=== PATIENT | female | born 1960 | race Caucasian/White ===

== ENCOUNTER 2018-03-18 08:44 | Outpatient (CLI) | payer BC ==
--- NOTE | 2018-03-18 12:37 | MMO ---
BILATERAL SCREENING MAMMOGRAMS: HISTORY: A 57-year-old female. Routine screening mammography. COMPARISON: 01/02/2017 and 07/28/2015 TECHNIQUE: CC and MLO views of both breasts were submitted for interpretation. This patient's mammogram is revi ewed with the assistance of computer aided detection. FINDINGS: The breasts are composed of scattered fibroglandular tissue. Bilaterally, no suspicious dominant mas s, architectural distortion, or suspicious calcification. Benign appearing calcification in the righ t breast. IMPRESSION: BI-RADS Category 2: Benign findings. RECOMMENDATIONS: Annual mammogram. POS: [facility]
== END 2018-03-18 08:45 | disposition home or self-care (01) ==
LOC: SCSMAMMO 08:44
PROVIDERS: ATTEND Family Medicine
DX: Z12.31 Encounter for screening mammogram for malignant neoplasm of breast (principal)
CPT/HCPCS: 77067

== ENCOUNTER 2019-01-14 00:29 | Outpatient (CLI) | payer BC ==
[2019-01-14 14:06] LABS: #Basophils 0.1 thou/uL (0.0-0.2); #Eosinphils 0.2 thou/uL (0.0-0.7); #Lymphocytes 2.4 thou/uL (1.20-3.40); #Monocytes 0.7 thou/uL (0.11-0.59); #Neutrophils 10.2 thou/uL (1.40-6.50); %Basophils 0.6 % (0.0-1.0); %Eosinophils 1.7 % (0.0-10.0); %Lymphocytes 17.9 % (21.0-51.0); %Monocytes 5.2 % (0.0-10.0); %Neutrophils 74.5 % (42.0-75.0); Hemoglobin 14.3 g/dL (12.0-16.0); Mean Corpuscular HGB CONC 32.5 g/dL (32.0-36.0); Mean Corpuscular Hemoglobin 30.9 pg (27.0-31.0); Mean Platelet Volume 7.7 fL (7.4-10.4); Platelet Count 330 thou/uL (130-400); RBC Distribution Width 12.5 % (11.5-14.5); Red Blood Cell (RBC) Count 4.62 mill/uL (4.20-5.40); White Blood Cell (WBC) Count 13.6 thou/uL (4.8-10.8)
[2019-01-14 14:16] LABS: Prothrombin Time 13.6 SEC (12.0-14.7)
[2019-01-14 14:20] LABS: Anion Gap 12 mmol/L (10-20); BUN (Urea Nitrogen) 22 mg/dL (9.8-20.1); Calc. Creatinine Clearance 0 mL/min (70-130); Carbon Dioxide 26 mmol/L (22-29); Chloride 104 mmol/L (98-107); Estimated GFR-MDRD 76; Glucose 89 mg/dL (70-105); Sodium 138 mmol/L (136-145)
== END 2019-01-14 00:30 | disposition home or self-care (01) ==
LOC: LABBT 00:29
PROVIDERS: ATTEND Orthopaedic Surgery
DX: Z01.818 Encounter for other preprocedural examination (principal); Z96.652 Presence of left artificial knee joint
CPT/HCPCS: 80048; 85025; 85610; 87081; 93005; 93010

== ENCOUNTER 2019-01-14 13:15 | Inpatient (IN) | payer BC ==
[2019-01-26] MEDS ORDERED: Midazolam HCl 2 mg/2 ml Vial ONE (06:11)
[2019-01-26] MEDS ORDERED: Fentanyl 100 MCG/2 ML VIAL ONE ×5 (06:11→09:46)
[2019-01-26] MEDS ORDERED: Sodium Chloride 0.9% 100 ML ONE (06:22)
[2019-01-26] MEDS ORDERED: Tranexamic Acid 1,000 MG/10 ML VIAL ONE (06:22)
[2019-01-26] MEDS ORDERED: ceFAZolin Sodium 2 GM/100 ML BAG ONE (06:22)
[2019-01-26] MEDS ORDERED: Zolpidem Tartrate 5 MG TAB PO PRN ×2 (07:09→21:00)
[2019-01-26] MEDS ORDERED: Ketorolac Tromethamine 30 MG/ML VIAL IVP PRN (07:09)
[2019-01-26] MEDS ORDERED: Ondansetron PF 4 MG/2 ML Vial IVP PRN ×2 (07:09→09:20)
[2019-01-26] MEDS ORDERED: Promethazine HCl 25 MG/ML VIAL IM PRN ×3 (07:09→09:20)
[2019-01-26] MEDS ORDERED: traMADol HCl 50 MG TAB PO PRN ×2 (07:09)
[2019-01-26] MEDS ORDERED: HYDROcodone/Acetaminophen 10/325 mg Tablet PO PRN (07:09)
[2019-01-26] MEDS ORDERED: Ropivacaine HCl/PF 250 ML in Premix Bag 1 BAG NERVE BLCK SCH (07:09)
[2019-01-26] MEDS ORDERED: Fentanyl 100 MCG/2 ML VIAL SLOW IVP PRN (07:13)
[2019-01-26] MEDS ORDERED: Promethazine HCl 25 MG/ML VIAL SLOW IVP PRN (09:04)
[2019-01-26] MEDS ORDERED: Ondansetron HCl/PF 4 MG/2 ML Vial IVP PRN (09:04)
[2019-01-26] MEDS ORDERED: PACU-Morphine 4MG/ML VIAL SLOW IVP PRN (09:04)
[2019-01-26] MEDS ORDERED: Acetaminophen 325 MG TAB PO PRN (09:20)
[2019-01-26] MEDS ORDERED: diphenhydrAMINE 25 MG CAP PO PRN (09:20)
[2019-01-26] MEDS ORDERED: CEFAZOLIN 2 GM in Sodium Chloride 0.9% 100 ML IVPB SCH (09:45)
--- NOTE | 2019-01-26 10:41 | RAD ---
LEFT KNEE TWO VIEWS: History: Post op. FINDINGS: Patient is status post total knee replacement. Prosthesis is in good position. No signs of fracture. IMPRESSION: Placement of a total knee prosthesis. POS: [facility]
--- NOTE | 2019-01-26 11:02 | OP ---
DATE OF PROCEDURE: 01/26/2019 PREOPERATIVE DIAGNOSIS: End-stage tricompartmental osteoarthritis, left knee. POSTOPERATIVE DIAGNOSIS: End-stage tricompartmental osteoarthritis, left knee. OPERATIVE PROCEDURE: Cemented cruciate sparing computer-assisted navigated left total knee arthroplasty. SHIPFITTER APPRENTICE: Say Starkey PA-C. ANESTHESIA: General via the LMA. Augmented with adductor canal indwelling block and an anterior sciatic single-shot block. COMPONENTS USED: [employer] triathlon primary cemented cruciate sparing, size #3 femoral component with a triathlon primary size #3 cemented tibial base plate, 9 mm polyethylene fixed bearing insert and an S27 patellar button. TOURNIQUET TIME: Not used. ESTIMATED BLOOD LOSS: 300 mL. FINDINGS: 1. End-stage severe degenerative tricompartmental disease. 2. [id number] arthrosis. 3. Periarticular osteophyte formation. 4. Large serous effusion. 5. Input was 1500 mL of crystalloid, output was 150 mL clear yellow urine. 6. 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 7. Hypertrophic synovium. DRAINS: None. SPECIMENS: None. COMPLICATIONS: None. COUNTS: Correct. INDICATION FOR SURGERY: Ms. Curtis is a 58-year-old white female who has had progressive left knee pain at the time of standing and walking for the last 5 to 7 seven years. She has failed conservative management and elected to proceed with total knee arthroplasty as definitive treatment of her pain. Job ID: [id number]
[2019-01-26] MEDS: Sodium Chloride 0.9% 1,000 ML IV SCH ×2 (11:45→20:30)
[2019-01-26] MEDS ORDERED: Ropivacaine 0.5% HCl/PF (150 MG/30 ML VIAL) ONE (11:50)
[2019-01-26] MEDS ORDERED: Ropivacaine 0.2% HCl/PF (40 MG/20 ML VIAL) ONE (11:50)
[2019-01-26] MEDS ORDERED: Ketorolac Tromethamine 30 MG/ML VIAL ONE (13:21)
[2019-01-26] MEDS ORDERED: Ondansetron PF 4 MG/2 ML Vial ONE (13:21)
[2019-01-26] MEDS ORDERED: Lidocaine 1% PF 5 ML VIAL ONE (13:21)
[2019-01-26] MEDS ORDERED: PROPOFOL 200 MG/20 ML VIAL ONE (13:21)
[2019-01-26] MEDS: HYDROcodone/Acetaminophen 10/325 mg Tablet PO PRN ×3 (13:46→22:10)
[2019-01-26] MEDS ORDERED: HumaLOG 300 UNITS/3 ML VIAL SC PRN ×2 (15:16)
[2019-01-26] MEDS ORDERED: Dextrose 5% in Water 1,000 ML IV PRN (15:16)
[2019-01-26] MEDS ORDERED: Dextrose 50% Abboject 50 ML SYRINGE SLOW IVP PRN (15:16)
--- NOTE | 2019-01-26 15:16 | PDOC.PN ---
- Subjective Encounter Start Date: 01/26/19 Encounter Start Time: 15:14 -: old records requested/rev Patient seen and examined. No new complaints. admitted for left knee replacement consulted for medical management - Objective Resuscitation Status - Order Detail: 01/26/19 15:13 Resuscitation Status Routine Resuscitation Status: FULL: Full Resuscitation MAR Reviewed: Yes Vital Signs & Weight: Vital Signs (12 hours) Temp Pulse Resp BP Pulse Ox 01/26/19 10:10 97.4 F L 92 18 130/83 100 Weight Weight 270 lb Additional Labs: old labs reviewed and noted CBC, BMP, normal Radiology Reviewed by me: Yes (knee xray reviewed) Phys Exam - Physical Examination Constitutional: NAD HEENT: PERRLA, moist MMs, sclera anicteric Neck: no JVD, supple Respiratory: no wheezing, no rales, no rhonchi Cardiovascular: RRR, no significant murmur, no rub Gastrointestinal: soft, non-tender, no distention, positive bowel sounds obesity+ Musculoskeletal: no edema, pulses present left knee with brace, dressing, nerve block in place, berry+ Neurological: non-focal, normal sensation, moves all 4 limbs Lymphatic: no nodes Psychiatric: normal affect, A&O x 3 Skin: no rash, normal turgor Dx/Plan (1) Status post total left knee replacement Code(s): Z96.652 - PRESENCE OF LEFT ARTIFICIAL KNEE JOINT Status: Acute (2) Diabetes type 2, controlled Code(s): E11.9 - TYPE 2 DIABETES MELLITUS WITHOUT COMPLICATIONS Status: Chronic (3) Dyslipidemia Code(s): E78.5 - HYPERLIPIDEMIA, UNSPECIFIED Status: Chronic (4) GERD (gastroesophageal reflux disease) Code(s): K21.9 - GASTRO-ESOPHAGEAL REFLUX DISEASE WITHOUT ESOPHAGITIS Status: Chronic (5) Hypertension Code(s): I10 - ESSENTIAL (PRIMARY) HYPERTENSION Status: Chronic (6) Hypothyroidism Code(s): E03.9 - HYPOTHYROIDISM, UNSPECIFIED Status: Chronic (7) Morbid obesity with BMI of 40.0-44.9, adult Code(s): E66.01 - MORBID (SEVERE) OBESITY DUE TO EXCESS CALORIES; Z68.41 - BODY MASS INDEX (BMI) 40.0-44.9, ADULT Status: Chronic (8) Osteoarthritis Code(s): M19.90 - UNSPECIFIED OSTEOARTHRITIS, UNSPECIFIED SITE Status: Chronic - Plan cont current plan of care, PT/OT * continue aspirin for DVT prophylaxis * home medication reconciled * hyperglycemia protocol treatment * PT/OT as per JU protocol treatment * pain control * nerve bloc as per anesthesia * medication reviewed as below * symptomatic treatment * code status full code. Review of Systems - Review of Systems ENT: negative: Ear Pain, Ear Discharge, Nose Pain, Nose Discharge, Nose Congestion, Mouth Pain, Mouth Swelling, Throat Pain, Throat Swelling, Other Respiratory: negative: Cough, Dry, Shortness of Breath, Hemoptysis, SOB with Excertion, Pleuritic Pain, Sputum, Wheezing Cardiovascular: negative: chest pain, palpitations, orthopnea, paroxysmal nocturnal dyspnea, edema, light headedness, other Gastrointestinal: negative: Nausea, Vomiting, Abdominal Pain, Diarrhea, Constipation, Melena, Hematochezia, Other Genitourinary: negative: Dysuria, Frequency, Incontinence, Hematuria, Retention , Other Musculoskeletal: negative: Neck Pain, Shoulder Pain, Arm Pain, Back Pain, Hand Pain, Leg Pain, Foot Pain, Other Skin: negative: Rash, Lesions, Robert, Bruising, Other - Medications/Allergies Allergies/Adverse Reactions: Allergies Allergy/AdvReac Type Severity Reaction Status Date / Time No Known Allergies Allergy Verified 01/14/19 12:40 Medications: Current Medications Acetaminophen (Tylenol) 650 mg PO Q4H PRN PRN Reason: Headache/Fever or Pain Hydrocodone Bitart/Acetaminophen ([place] 10/325) 1 tab PO Q4H PRN PRN Reason: Pain (1-3) Hydrocodone Bitart/Acetaminophen ([place] 10/325) 2 tab PO Q4H PRN PRN Reason: PAIN (4-6) Last Admin: 01/26/19 13:46 Dose: 2 tab Aspirin (Ecotrin) 81 mg PO BID [facility] Atorvastatin Calcium (Lipitor) 20 mg PO HS [facility] Cholecalciferol (Vitamin D3) 2,000 units PO BID [facility] Diphenhydramine HCl (Benadryl) 25 mg PO Q6H PRN PRN Reason: Itching Fentanyl (Sublimaze) 50 mcg SLOW IVP Q1H PRN PRN Reason: Breakthrough Pain Last Admin: 01/26/19 11:44 Dose: 50 mcg Ferrous Gluconate (Fergon) 324 mg PO BID [facility] Vancomycin HCl 2 gm/ Sodium (Chloride) 500 mls @ 250 mls/hr IVPB ONE [facility] Stop: 01/27/19 08:14 Ropivacaine 250 ml/ Device 250 mls @ 6 mls/hr NERVE BLCK INF [facility] Sodium Chloride (Normal Saline 0.9%) 1,000 mls @ 100 mls/hr IV .Q10H [facility] Last Admin: 01/26/19 11:45 Dose: 1,000 mls Cefazolin Sodium 2 gm/ Sodium (Chloride) 100 mls @ 200 mls/hr IVPB 1500,2300 [facility] Stop: 01/26/19 23:29 Iron/Minerals/Multivitamins (Theragran M) 1 tab PO DAILY [facility] Ketorolac Tromethamine (Toradol) 15 mg IVP Q6H PRN PRN Reason: Moderate Pain (4-6) Stop: 01/29/19 07:10 Ketorolac Tromethamine (Toradol) 30 mg IVP Q8HR [facility] Stop: 01/28/19 14:01 Levothyroxine Sodium (Synthroid) 88 mcg PO 0600 [facility] Lisinopril (Zestril) 10 mg PO DAILY [facility] Loratadine (Claritin) 10 mg PO HS [facility] Ondansetron HCl (Zofran) 4 mg IVP Q6H PRN PRN Reason: Nausea/Vomiting Pantoprazole Sodium (Protonix) 40 mg PO QPM [facility] Pioglitazone HCl (Actos) 30 mg PO DAILY [facility] Promethazine HCl (Phenergan) 12.5 mg IM Q4H PRN PRN Reason: Nausea/Vomiting Senna/Docusate Sodium (Senokot S) 2 tab PO BID [facility] Sodium Chloride (Flush - Normal Saline) 10 ml IVF PRN PRN PRN Reason: Saline Flush Spironolactone (Aldactone) 25 mg PO DAILY [facility] Tramadol HCl (Ultram) 50 mg PO Q6H PRN PRN Reason: Mild Pain (1-3) Tramadol HCl (Ultram) 100 mg PO Q6H PRN PRN Reason: Moderate Pain 4-6 Zolpidem Tartrate (Ambien) 5 mg PO HS PRN PRN Reason: Insomnia
[2019-01-26] MEDS: Ketorolac Tromethamine 30 MG/ML VIAL IVP SCH ×2 (15:40→21:00)
[2019-01-26] MEDS: CEFAZOLIN 2 GM in Sodium Chloride 0.9% 100 ML IVPB SCH ×2 (16:09→22:12)
[2019-01-26] MEDS: Atorvastatin Calcium 20 MG TAB PO SCH (20:52)
[2019-01-26] MEDS: Ferrous Gluconate 324 MG TAB PO SCH (20:52)
[2019-01-26] MEDS: Senokot S 8.6-50 MG TAB PO SCH (20:52)
[2019-01-26] MEDS: Loratadine 10 MG TAB PO SCH (20:52)
[2019-01-26] MEDS: Aspirin 81 mg Enteric Coated Tablet PO SCH (20:53)
[2019-01-27] MEDS: HYDROcodone/Acetaminophen 10/325 mg Tablet PO PRN ×5 (03:10→21:56)
[2019-01-27] MEDS: Sodium Chloride 0.9% 1,000 ML IV SCH ×2 (04:49→15:11)
[2019-01-27 05:28] LABS: Hemoglobin 10.8 g/dL (12.0-16.0); Mean Corpuscular HGB CONC 31.8 g/dL (32.0-36.0); Mean Corpuscular Hemoglobin 29.8 pg (27.0-31.0); Mean Corpuscular Volume 93.8 fL (78.0-98.0); Mean Platelet Volume 7.3 fL (7.4-10.4); Platelet Count 237 thou/uL (130-400); RBC Distribution Width 12.6 % (11.5-14.5); Red Blood Cell (RBC) Count 3.61 mill/uL (4.20-5.40); White Blood Cell (WBC) Count 11.8 thou/uL (4.8-10.8)
[2019-01-27] MEDS: Ketorolac Tromethamine 30 MG/ML VIAL IVP SCH ×3 (05:30→22:00)
[2019-01-27] MEDS: Levothyroxine Sodium 100 MCG TAB PO SCH (05:31)
[2019-01-27] MEDS: Pioglitazone HCl 15 MG TAB PO SCH (08:37)
[2019-01-27] MEDS: Aspirin 81 mg Enteric Coated Tablet PO SCH ×2 (08:37→21:49)
[2019-01-27] MEDS: Lisinopril 10 MG TAB PO SCH (08:37)
--- NOTE | 2019-01-27 08:37 | PRG ---
DATE OF SERVICE: 01/27/2019 SUBJECTIVE: Ms. Curtis is a 58-year-old female who is postop day #1 from a left total knee arthroplasty. She is doing relatively well. She ambulated 40 feet yesterday evening. I believe she is scheduled for [facility] on postop day #3. OBJECTIVE: VITAL SIGNS: Temperature 97.7, pulse 85, respiratory rate 16, O2 saturation is 100% on room air with blood pressure of 106/72. GENERAL: She is alert and oriented to person, place, time, and situation and appropriate with examiner. EXTREMITIES: She is neurovascular intact in both lower extremities. LABORATORY DATA: Hemoglobin and hematocrit 10.8 and 33.9. IMPRESSION: 1. A 58-year-old female, postoperative day #1, left total knee arthroplasty. 2. Mild postoperative asymptomatic hemorrhagic anemia. PLAN: Continue current care. Plan for transfer on postop day #3 to [facility]. Job ID: [id number]
[2019-01-27] MEDS: Multivitamin W/ Minerals 1 TAB PO SCH (08:38)
[2019-01-27] MEDS: Ferrous Gluconate 324 MG TAB PO SCH ×2 (08:38→21:49)
[2019-01-27] MEDS: Senokot S 8.6-50 MG TAB PO SCH ×2 (08:38→21:49)
[2019-01-27] MEDS: Spironolactone 25 MG TAB PO SCH (08:38)
[2019-01-27 10:06] VITALS: BMI 41.0
--- NOTE | 2019-01-27 11:11 | PDOC.PN ---
- Subjective Encounter Start Date: 01/27/19 Encounter Start Time: 08:30 Patient seen and examined. No new complaints. No overnight events - Objective Resuscitation Status - Order Detail: 01/26/19 15:13 Resuscitation Status Routine Resuscitation Status: FULL: Full Resuscitation MAR Reviewed: Yes Vital Signs & Weight: Vital Signs (12 hours) Temp Pulse Resp BP BP Pulse Ox 01/27/19 08:37 129/80 01/27/19 07:07 98 F 85 20 129/80 97 01/27/19 04:00 97.7 F 85 16 106/72 100 01/27/19 00:00 98.5 F 84 16 121/77 95 Weight Admit Weight 270 lb Weight 270 lb I&O: 01/26/19 01/27/19 01/28/19 06:59 06:59 06:59 Intake Total 1301 Output Total 1550 Balance -249 Result Diagrams: 01/27/19 04:53 Additional Labs: Accuchecks 01/27/19 01/26/19 01/26/19 05:32 20:51 15:49 POC Glucose 138 H 136 H 122 H Phys Exam - Physical Examination Constitutional: NAD HEENT: PERRLA, moist MMs, sclera anicteric Neck: no JVD, supple Respiratory: no wheezing, no rales, no rhonchi Cardiovascular: RRR, no significant murmur, no rub Gastrointestinal: soft, non-tender, no distention, positive bowel sounds Musculoskeletal: no edema, pulses present left knee with dressing, nerve block in place Neurological: non-focal, normal sensation Lymphatic: no nodes Psychiatric: normal affect, A&O x 3 Skin: no rash, normal turgor Dx/Plan (1) Status post total left knee replacement Code(s): Z96.652 - PRESENCE OF LEFT ARTIFICIAL KNEE JOINT Status: Acute (2) Diabetes type 2, controlled Code(s): E11.9 - TYPE 2 DIABETES MELLITUS WITHOUT COMPLICATIONS Status: Chronic (3) Dyslipidemia Code(s): E78.5 - HYPERLIPIDEMIA, UNSPECIFIED Status: Chronic (4) GERD (gastroesophageal reflux disease) Code(s): K21.9 - GASTRO-ESOPHAGEAL REFLUX DISEASE WITHOUT ESOPHAGITIS Status: Chronic (5) Hypertension Code(s): I10 - ESSENTIAL (PRIMARY) HYPERTENSION Status: Chronic (6) Hypothyroidism Code(s): E03.9 - HYPOTHYROIDISM, UNSPECIFIED Status: Chronic (7) Morbid obesity with BMI of 40.0-44.9, adult Code(s): E66.01 - MORBID (SEVERE) OBESITY DUE TO EXCESS CALORIES; Z68.41 - BODY MASS INDEX (BMI) 40.0-44.9, ADULT Status: Chronic (8) Osteoarthritis Code(s): M19.90 - UNSPECIFIED OSTEOARTHRITIS, UNSPECIFIED SITE Status: Chronic - Plan cont current plan of care, PT/OT * medication reviewed as below * symptomatic treatment * pain controlled * nerve block as per anesthesia * berry out today * overall doing well with PT * expecting discharge tomorrow * continue aspirin and her home meds. Review of Systems - Review of Systems ENT: negative: Ear Pain, Ear Discharge, Nose Pain, Nose Discharge, Nose Congestion, Mouth Pain, Mouth Swelling, Throat Pain, Throat Swelling, Other Respiratory: negative: Cough, Dry, Shortness of Breath, Hemoptysis, SOB with Excertion, Pleuritic Pain, Sputum, Wheezing Cardiovascular: negative: chest pain, palpitations, orthopnea, paroxysmal nocturnal dyspnea, edema, light headedness, other Gastrointestinal: negative: Nausea, Vomiting, Abdominal Pain, Diarrhea, Constipation, Melena, Hematochezia, Other Genitourinary: negative: Dysuria, Frequency, Incontinence, Hematuria, Retention , Other Musculoskeletal: negative: Neck Pain, Shoulder Pain, Arm Pain, Back Pain, Hand Pain, Leg Pain, Foot Pain, Other Skin: negative: Rash, Lesions, Robert, Bruising, Other - Medications/Allergies Allergies/Adverse Reactions: Allergies Allergy/AdvReac Type Severity Reaction Status Date / Time No Known Allergies Allergy Verified 01/14/19 12:40 Medications: Current Medications Acetaminophen (Tylenol) 650 mg PO Q4H PRN PRN Reason: Headache/Fever or Pain Hydrocodone Bitart/Acetaminophen ([place] 10/325) 1 tab PO Q4H PRN PRN Reason: Pain (1-3) Hydrocodone Bitart/Acetaminophen ([place] 10/325) 2 tab PO Q4H PRN PRN Reason: PAIN (4-6) Last Admin: 01/27/19 08:34 Dose: 2 tab Aspirin (Ecotrin) 81 mg PO BID [facility] Last Admin: 01/27/19 08:37 Dose: 81 mg Atorvastatin Calcium (Lipitor) 20 mg PO HS [facility] Last Admin: 01/26/19 20:52 Dose: 20 mg Cholecalciferol (Vitamin D3) 2,000 units PO BID [facility] Last Admin: 01/27/19 08:38 Dose: 2,000 units Dextrose/Water (Dextrose 50%) 25 gm SLOW IVP PRN PRN PRN Reason: Hypoglycemia Diphenhydramine HCl (Benadryl) 25 mg PO Q6H PRN PRN Reason: Itching Fentanyl (Sublimaze) 50 mcg SLOW IVP Q1H PRN PRN Reason: Breakthrough Pain Last Admin: 01/26/19 11:44 Dose: 50 mcg Ferrous Gluconate (Fergon) 324 mg PO BID [facility] Last Admin: 01/27/19 08:38 Dose: 324 mg Glucagon (Glucagon) 1 mg IM PRN PRN PRN Reason: Hypoglycemia Ropivacaine 250 ml/ Device 250 mls @ 6 mls/hr NERVE BLCK INF [facility] Last Admin: 01/27/19 10:32 Dose: 250 mls Sodium Chloride (Normal Saline 0.9%) 1,000 mls @ 100 mls/hr IV .Q10H [facility] Last Admin: 01/27/19 04:49 Dose: Not Given Dextrose/Water (D5w) 1,000 mls @ 0 mls/hr IV .Q0M PRN PRN Reason: Hypoglycemia Insulin Human Lispro (Humalog) 0 units SC .MODERATE SLIDING SC PRN PRN Reason: Moderate Correctional Scale Insulin Human Lispro (Humalog) 0 units SC .BEDTIME SLIDING SC PRN PRN Reason: Bedtime Correctional Scale Iron/Minerals/Multivitamins (Theragran M) 1 tab PO DAILY [facility] Last Admin: 01/27/19 08:38 Dose: 1 tab Ketorolac Tromethamine (Toradol) 15 mg IVP Q6H PRN PRN Reason: Moderate Pain (4-6) Stop: 01/29/19 07:10 Ketorolac Tromethamine (Toradol) 30 mg IVP Q8HR [facility] Stop: 01/28/19 14:01 Last Admin: 01/27/19 05:30 Dose: 30 mg Levothyroxine Sodium (Synthroid) 88 mcg PO 0600 [facility] Last Admin: 01/27/19 05:31 Dose: 88 mcg Lisinopril (Zestril) 10 mg PO DAILY [facility] Last Admin: 01/27/19 08:37 Dose: 10 mg Loratadine (Claritin) 10 mg PO HS [facility] Last Admin: 01/26/19 20:52 Dose: 10 mg Ondansetron HCl (Zofran) 4 mg IVP Q6H PRN PRN Reason: Nausea/Vomiting Last Admin: 01/27/19 08:04 Dose: 4 mg Pantoprazole Sodium (Protonix) 40 mg PO QPM [facility] Last Admin: 01/26/19 20:52 Dose: 40 mg Pioglitazone HCl (Actos) 30 mg PO DAILY [facility] Last Admin: 01/27/19 08:37 Dose: 30 mg Promethazine HCl (Phenergan) 12.5 mg IM Q4H PRN PRN Reason: Nausea/Vomiting Senna/Docusate Sodium (Senokot S) 2 tab PO BID [facility] Last Admin: 01/27/19 08:38 Dose: 2 tab Sodium Chloride (Flush - Normal Saline) 10 ml IVF PRN PRN PRN Reason: Saline Flush Spironolactone (Aldactone) 25 mg PO DAILY [facility] Last Admin: 01/27/19 08:38 Dose: 25 mg Tramadol HCl (Ultram) 50 mg PO Q6H PRN PRN Reason: Mild Pain (1-3) Tramadol HCl (Ultram) 100 mg PO Q6H PRN PRN Reason: Moderate Pain 4-6 Zolpidem Tartrate (Ambien) 5 mg PO HS PRN PRN Reason: Insomnia
[2019-01-27] MEDS: Atorvastatin Calcium 20 MG TAB PO SCH (21:49)
[2019-01-27] MEDS: Loratadine 10 MG TAB PO SCH (21:49)
[2019-01-28] MEDS: Sodium Chloride 0.9% 1,000 ML IV SCH ×2 (00:31→12:36)
[2019-01-28] MEDS: HYDROcodone/Acetaminophen 10/325 mg Tablet PO PRN ×3 (03:45→13:03)
[2019-01-28 04:40] LABS: Hemoglobin 9.9 g/dL (12.0-16.0); Mean Corpuscular HGB CONC 32.6 g/dL (32.0-36.0); Mean Corpuscular Hemoglobin 30.8 pg (27.0-31.0); Mean Corpuscular Volume 94.5 fL (78.0-98.0); Mean Platelet Volume 7.4 fL (7.4-10.4); Platelet Count 231 thou/uL (130-400); RBC Distribution Width 12.5 % (11.5-14.5); Red Blood Cell (RBC) Count 3.21 mill/uL (4.20-5.40); White Blood Cell (WBC) Count 12.6 thou/uL (4.8-10.8)
[2019-01-28] MEDS: Levothyroxine Sodium 100 MCG TAB PO SCH (05:59)
[2019-01-28] MEDS: Ketorolac Tromethamine 30 MG/ML VIAL IVP SCH (06:00)
[2019-01-28] MEDS: Senokot S 8.6-50 MG TAB PO SCH (08:04)
[2019-01-28] MEDS: Multivitamin W/ Minerals 1 TAB PO SCH (08:04)
[2019-01-28] MEDS: Pioglitazone HCl 15 MG TAB PO SCH (08:04)
[2019-01-28] MEDS: Ferrous Gluconate 324 MG TAB PO SCH (08:05)
[2019-01-28] MEDS: Aspirin 81 mg Enteric Coated Tablet PO SCH (08:05)
[2019-01-28] MEDS: Lisinopril 10 MG TAB PO SCH (08:05)
[2019-01-28] MEDS: Spironolactone 25 MG TAB PO SCH (08:05)
--- NOTE | 2019-01-28 10:08 | PDOC.PN ---
- Subjective Encounter Start Date: 01/28/19 Encounter Start Time: 08:40 Patient seen and examined. No new complaints. No overnight events - Objective Resuscitation Status - Order Detail: 01/26/19 15:13 Resuscitation Status Routine Resuscitation Status: FULL: Full Resuscitation MAR Reviewed: Yes Vital Signs & Weight: Vital Signs (12 hours) Temp Pulse Resp BP BP Pulse Ox 01/28/19 08:05 106/89 01/28/19 07:10 98.6 F 95 16 106/69 95 01/28/19 04:00 98.8 F 99 18 128/81 98 01/28/19 00:00 98.7 F 97 18 130/75 99 Weight Admit Weight 270 lb Weight 270 lb I&O: 01/27/19 01/28/19 01/29/19 06:59 06:59 06:59 Intake Total 1301 2645 Output Total 1550 200 Balance -249 2445 Result Diagrams: 01/28/19 04:16 Additional Labs: Accuchecks 01/28/19 01/27/19 01/27/19 06:08 21:55 16:30 POC Glucose 141 H 141 H 131 H Phys Exam - Physical Examination Constitutional: NAD HEENT: PERRLA, moist MMs, sclera anicteric Neck: no JVD, supple Respiratory: no wheezing, no rales, no rhonchi Cardiovascular: RRR, no significant murmur, no rub Gastrointestinal: soft, non-tender, no distention, positive bowel sounds Musculoskeletal: no edema, pulses present surgical site clean Neurological: non-focal, normal sensation Psychiatric: normal affect, A&O x 3 Skin: no rash, normal turgor Dx/Plan (1) Status post total left knee replacement Code(s): Z96.652 - PRESENCE OF LEFT ARTIFICIAL KNEE JOINT Status: Acute (2) Diabetes type 2, controlled Code(s): E11.9 - TYPE 2 DIABETES MELLITUS WITHOUT COMPLICATIONS Status: Chronic (3) Dyslipidemia Code(s): E78.5 - HYPERLIPIDEMIA, UNSPECIFIED Status: Chronic (4) GERD (gastroesophageal reflux disease) Code(s): K21.9 - GASTRO-ESOPHAGEAL REFLUX DISEASE WITHOUT ESOPHAGITIS Status: Chronic (5) Hypertension Code(s): I10 - ESSENTIAL (PRIMARY) HYPERTENSION Status: Chronic (6) Hypothyroidism Code(s): E03.9 - HYPOTHYROIDISM, UNSPECIFIED Status: Chronic (7) Morbid obesity with BMI of 40.0-44.9, adult Code(s): E66.01 - MORBID (SEVERE) OBESITY DUE TO EXCESS CALORIES; Z68.41 - BODY MASS INDEX (BMI) 40.0-44.9, ADULT Status: Chronic (8) Osteoarthritis Code(s): M19.90 - UNSPECIFIED OSTEOARTHRITIS, UNSPECIFIED SITE Status: Chronic - Plan cont current plan of care, plan discussed w/ family, PT/OT * medication reviewed as below * symptomatic treatment * stable for discharge. Review of Systems - Review of Systems ENT: negative: Ear Pain, Ear Discharge, Nose Pain, Nose Discharge, Nose Congestion, Mouth Pain, Mouth Swelling, Throat Pain, Throat Swelling, Other Respiratory: negative: Cough, Dry, Shortness of Breath, Hemoptysis, SOB with Excertion, Pleuritic Pain, Sputum, Wheezing Cardiovascular: negative: chest pain, palpitations, orthopnea, paroxysmal nocturnal dyspnea, edema, light headedness, other Gastrointestinal: negative: Nausea, Vomiting, Abdominal Pain, Diarrhea, Constipation, Melena, Hematochezia, Other Genitourinary: negative: Dysuria, Frequency, Incontinence, Hematuria, Retention , Other Musculoskeletal: negative: Neck Pain, Shoulder Pain, Arm Pain, Back Pain, Hand Pain, Leg Pain, Foot Pain, Other - Medications/Allergies Allergies/Adverse Reactions: Allergies Allergy/AdvReac Type Severity Reaction Status Date / Time No Known Allergies Allergy Verified 01/14/19 12:40 Medications: Current Medications Acetaminophen (Tylenol) 650 mg PO Q4H PRN PRN Reason: Headache/Fever or Pain Hydrocodone Bitart/Acetaminophen ([place] 10/325) 1 tab PO Q4H PRN PRN Reason: Pain (1-3) Hydrocodone Bitart/Acetaminophen ([place] 10/325) 2 tab PO Q4H PRN PRN Reason: PAIN (4-6) Last Admin: 01/28/19 03:45 Dose: 2 tab Aspirin (Ecotrin) 81 mg PO BID [facility] Last Admin: 01/28/19 08:05 Dose: 81 mg Atorvastatin Calcium (Lipitor) 20 mg PO HS [facility] Last Admin: 01/27/19 21:49 Dose: 20 mg Cholecalciferol (Vitamin D3) 2,000 units PO BID [facility] Last Admin: 01/28/19 08:04 Dose: 2,000 units Dextrose/Water (Dextrose 50%) 25 gm SLOW IVP PRN PRN PRN Reason: Hypoglycemia Diphenhydramine HCl (Benadryl) 25 mg PO Q6H PRN PRN Reason: Itching Fentanyl (Sublimaze) 50 mcg SLOW IVP Q1H PRN PRN Reason: Breakthrough Pain Last Admin: 01/26/19 11:44 Dose: 50 mcg Ferrous Gluconate (Fergon) 324 mg PO BID [facility] Last Admin: 01/28/19 08:05 Dose: 324 mg Glucagon (Glucagon) 1 mg IM PRN PRN PRN Reason: Hypoglycemia Ropivacaine 250 ml/ Device 250 mls @ 6 mls/hr NERVE BLCK INF [facility] Last Admin: 01/27/19 10:32 Dose: 250 mls Sodium Chloride (Normal Saline 0.9%) 1,000 mls @ 100 mls/hr IV .Q10H [facility] Last Admin: 01/28/19 00:31 Dose: Not Given Dextrose/Water (D5w) 1,000 mls @ 0 mls/hr IV .Q0M PRN PRN Reason: Hypoglycemia Insulin Human Lispro (Humalog) 0 units SC .MODERATE SLIDING SC PRN PRN Reason: Moderate Correctional Scale Insulin Human Lispro (Humalog) 0 units SC .BEDTIME SLIDING SC PRN PRN Reason: Bedtime Correctional Scale Iron/Minerals/Multivitamins (Theragran M) 1 tab PO DAILY [facility] Last Admin: 01/28/19 08:04 Dose: 1 tab Ketorolac Tromethamine (Toradol) 15 mg IVP Q6H PRN PRN Reason: Moderate Pain (4-6) Stop: 01/29/19 07:10 Ketorolac Tromethamine (Toradol) 30 mg IVP Q8HR [facility] Stop: 01/28/19 14:01 Last Admin: 01/28/19 06:00 Dose: 30 mg Levothyroxine Sodium (Synthroid) 88 mcg PO 0600 [facility] Last Admin: 01/28/19 05:59 Dose: 88 mcg Lisinopril (Zestril) 10 mg PO DAILY [facility] Last Admin: 01/28/19 08:05 Dose: 10 mg Loratadine (Claritin) 10 mg PO HS [facility] Last Admin: 01/27/19 21:49 Dose: 10 mg Ondansetron HCl (Zofran) 4 mg IVP Q6H PRN PRN Reason: Nausea/Vomiting Last Admin: 01/27/19 08:04 Dose: 4 mg Pantoprazole Sodium (Protonix) 40 mg PO QPM [facility] Last Admin: 01/27/19 21:49 Dose: 40 mg Pioglitazone HCl (Actos) 30 mg PO DAILY [facility] Last Admin: 01/28/19 08:04 Dose: 30 mg Promethazine HCl (Phenergan) 12.5 mg IM Q4H PRN PRN Reason: Nausea/Vomiting Senna/Docusate Sodium (Senokot S) 2 tab PO BID [facility] Last Admin: 01/28/19 08:04 Dose: 2 tab Sodium Chloride (Flush - Normal Saline) 10 ml IVF PRN PRN PRN Reason: Saline Flush Last Admin: 01/28/19 08:06 Dose: 10 ml Spironolactone (Aldactone) 25 mg PO DAILY [facility] Last Admin: 01/28/19 08:05 Dose: 25 mg Tramadol HCl (Ultram) 50 mg PO Q6H PRN PRN Reason: Mild Pain (1-3) Tramadol HCl (Ultram) 100 mg PO Q6H PRN PRN Reason: Moderate Pain 4-6 Zolpidem Tartrate (Ambien) 5 mg PO HS PRN PRN Reason: Insomnia
--- NOTE | 2019-01-28 11:04 | DIS ---
DATE OF ADMISSION: 01/26/2019 DATE OF DISCHARGE: 01/28/2019 PRIMARY CARE PHYSICIAN: Dr. Nigel Ch. DISCHARGE DISPOSITION: Home. PRIMARY DISCHARGE DIAGNOSIS: Status post left total knee replacement. SECONDARY DISCHARGE DIAGNOSES: Diabetes type 2, hypertension, dyslipidemia, hypothyroidism, gastroesophageal reflux disease, morbid obesity, osteoarthritis, and normocytic normochromic anemia. PRIMARY PROCEDURE/OPERATION: Left total knee replacement. RADIOLOGICAL INVESTIGATION: Knee x-ray. SIGNIFICANT LABORATORY DATA: Hemoglobin 9.9. DISCHARGE MEDICATIONS: 1. Aspirin 81 mg p.o. b.i.d. 2. Lipitor 20 mg p.o. at bedtime. 3. Cetirizine 10 mg at bedtime. 4. Vitamin D3 of 2000 units p.o. b.i.d. 5. Synthroid 88 mcg p.o. daily. 6. Lisinopril 10 mg daily. 7. Protonix 40 mg daily. 8. Actos 30 mg p.o. daily. 9. Aldactone 25 mg p.o. daily. CONTRAINDICATION: None. CODE STATUS: Full code. INPATIENT EFFICIENCY CLERK: Dr. Ríos was primary. [facility] Team was consulted for medical comanagement. TEST RESULTS PENDING ON DISCHARGE: None. ALLERGIES: NO KNOWN DRUG ALLERGIES. DISCHARGE PLAN: Posthospital, the patient will follow up with primary care physician in seven days. The patient has appointment with Dr. Ríos on February 17, 2019 at 9:45 a.m. HOSPITAL COURSE: A 58-year-old female, who was electively admitted by Dr. Ríos for left total knee replacement which was done on January 26, 2019. Postoperatively, [facility] Team was consulted for medical comanagement. The patient's medical problems remained stable. The patient did very well with [facility] protocol treatment. The patient is planned for discharge today. She was given aspirin for DVT prophylaxis. She had no block while in the hospital, which was removed by the time of discharge, the patient's pain was controlled with pain medication. The patient is seen and examined at bedside today. Please see my progress note from today for further detail. Job ID: [id number]
[2019-01-28 12:30] VITALS: BP 123/77; TEMP 97.8
== END 2019-01-28 13:30 | disposition home or self-care (01) | DRG 470 ==
LOC: SURG A 01-26 05:30 → SJJU 01-26 10:23
PROVIDERS: ADMIT Orthopaedic Surgery; ATTEND Orthopaedic Surgery
PROC: 0SRD0J9 Replacement of Left Knee Joint with Synthetic Substitute, Cemented, Open Approach (ICD-10-PCS; principal; 2019-01-26)
DX: M17.12 Unilateral primary osteoarthritis, left knee (principal); Z68.41 Body mass index [BMI] 40.0-44.9, adult; D62 Acute posthemorrhagic anemia; M25.462 Effusion, left knee; M21.162 Varus deformity, not elsewhere classified, left knee; E11.9 Type 2 diabetes mellitus without complications; E78.5 Hyperlipidemia, unspecified; K21.9 Gastro-esophageal reflux disease without esophagitis; I10 Essential (primary) hypertension; E03.9 Hypothyroidism, unspecified; E66.01 Morbid (severe) obesity due to excess calories
CPT/HCPCS: 36415; 36416; 85027; 86850; 86900; 86901; C1713; C1776; J0690; J1885; J2001; J2250; J2405; J2704; J2795; J3010; J3370; J7050

== ENCOUNTER 2019-06-22 09:47 | Outpatient (CLI) | payer BC ==
--- NOTE | 2019-06-22 10:34 | MMO ---
Bilateral MAMMO Bilat Screen [facility]. CLINICAL HISTORY: Patient is 59 years old and is seen for screening. VIEWS: The views performed were: bilateral craniocaudal with tomosynthesis and bilateral mediolateral oblique with tomosynthesis. FILMS COMPARED: The present examination has been compared to prior imaging studies performed at [facility] on 01/02/2017 and 03/18/2018, and at [facility] on 07/28/2015. MAMMOGRAM FINDINGS: There are scattered fibroglandular densities. There are no suspicious masses, suspicious calcifications, or new areas of architectural distortion. IMPRESSION: THERE IS NO MAMMOGRAPHIC EVIDENCE OF MALIGNANCY. A ROUTINE FOLLOW-UP MAMMOGRAM IN 1 YEAR IS RECOMMENDED. THE RESULTS OF THIS EXAM WERE SENT TO THE PATIENT. ACR BI-RADS Category 1 - Negative MAMMOGRAPHY NOTE: 1. A negative mammogram report should not delay a biopsy if a dominant of clinically suspicious mass is present. 2. Approximately 10% to 15% of breast cancers are not detected by mammography. 3. Adenosis and dense breasts may obscure an underlying neoplasm. Reported by: BRITTANIE CHEATHAM MD Electonically Signed: [id number]
== END 2019-06-22 09:48 | disposition home or self-care (01) ==
LOC: BICMAMMO 09:47
PROVIDERS: ATTEND Family Medicine
DX: Z12.31 Encounter for screening mammogram for malignant neoplasm of breast (principal)
CPT/HCPCS: 77063; 77067

== ENCOUNTER 2019-09-07 09:06 | Outpatient (CLI) | payer BC ==
--- NOTE | 2019-09-07 09:51 | ULT ---
Thyroid ultrasound: 09/07/2019 COMPARISON: 03/26/2016 HISTORY: Multinodular goiter TECHNIQUE: Multiplanar grayscale sonographic imaging of the thyroid gland obtained. FINDINGS: Thyroid isthmus measures 4 mm in AP dimension. The right lobe measures 6.0 x 2.8 x 2.7 cm and the left lobe measures 4.8 x 1.8 x 1.9 cm. The thyroid parenchyma is diffusely heterogeneous. This appearance is likely secondary to a thyroid g land which is almost completely replaced with nodules. There is no discrete/dominant nodule apparent on either side. There has been no significant interval change when compared to the prior exa mination. Solid nodules measure up to 1.9 cm on the right and 1.5 cm on the left, not significantly changed. IMPRESSION: Stable marked heterogeneity of the thyroid gland with nodules essentially replacing the e ntirety of the thyroid parenchyma bilaterally.
== END 2019-09-07 09:07 | disposition home or self-care (01) ==
LOC: SCSULT 09:06
PROVIDERS: ATTEND Family Medicine
DX: E04.2 Nontoxic multinodular goiter (principal)
CPT/HCPCS: 76536